=== PATIENT | female | born 1995 | race Caucasian/White ===

== ENCOUNTER 2016-10-13 19:26 | Emergency (ER) | payer OTHER ==
[2016-10-13] MEDS ORDERED: NS 1,000 ML IV ONE (21:14)
--- NOTE | 2016-10-13 21:17 | EDPHY ---
H & P Stated Complaint: abdominal pain x 2 hours Time Seen by Provider: 10/13/16 21:04 HPI/ROS: CHIEF COMPLAINT: Abdominal pain HISTORY OF PRESENT ILLNESS: The patient is a 21-year-old female who complains of sudden onset acute abdominal pain in her left lower abdomen that began about an hour ago. It is beginning to improve. She denies any trauma. She denies any nausea vomiting or diarrhea. She has not had a fever or recent illness. She is to weeks from her last menstrual period. She denies any risk of or STD. No vaginal bleeding or discharge. She has a Mirena IUD. No urinary symptoms. she has a family history of ovarian cysts. REVIEW OF SYSTEMS: Constitutional: denies: chills, fever, recent illness, recent injury EENTM: denies: blurred vision, double vision, nose congestion Respiratory: denies: cough, shortness of breath Cardiac: denies: chest pain, irregular heart rate, lightheadedness, palpitations Gastrointestinal/Abdominal: See HPI, denies: abdominal pain, diarrhea, nausea, vomiting, blood streaked stools Genitourinary: denies: dysuria, frequency, hematuria, pain Musculoskeletal: denies: joint pain, muscle pain Skin: denies: lesions, rash, jaundice, bruising Neurological: denies: headache, numbness, paresthesia, tingling, dizziness, weakness Hematologic/Lymphatic: denies: blood clots, easy bleeding, easy bruising Immunologic/allergic: denies: HIV/AIDS, transplant EXAM: GENERAL: Well-appearing, well-nourished and in no acute distress. HEAD: Atraumatic, normocephalic. EYES: Pupils equal round and reactive to light, extraocular movements intact, sclera anicteric, conjunctiva are normal. ENT: TMs normal, nares patent, oropharynx clear without exudates. Moist mucous membranes. NECK: Normal range of motion, supple without lymphadenopathy or JVD. LUNGS: Breath sounds clear to auscultation bilaterally and equal. No wheezes rales or rhonchi. HEART: Regular rate and rhythm without murmurs, rubs or gallops. ABDOMEN: Left lower quadrant tenderness, normoactive bowel sounds. No tenderness over McBurney's point , negative Doherty sign, BACK: No CVA tenderness, no spinal tenderness, step-offs or deformities EXTREMITIES: Normal range of motion, no pitting or edema. No clubbing or cyanosis. NEUROLOGICAL: Cranial nerves II through XII grossly intact. Normal speech, normal gait. 5/5 strength, normal movement in all extremities, normal sensation PSYCH: Normal mood, normal affect. SKIN: Warm, dry, normal turgor, no visible rashes or lesions. Source: Patient Exam Limitations: No limitations - Personal History LMP (Females 10-55): 8-14 Days Ago Current Tetanus/Diphtheria Vaccine: Unsure Current Tetanus Diphtheria and Acellular Pertussis (TDAP): Unsure - Medical/Surgical History Hx Asthma: No Hx Chronic Respiratory Disease: No Hx Diabetes: No Hx Cardiac Disease: No Hx Renal Disease: No Hx Cirrhosis: No Hx Alcoholism: No Hx HIV/AIDS: No Hx Splenectomy or Spleen Trauma: No Other PMH: Medical spontaneous Pneumothorax, MDD, current smoker (1-2 cigarettes per day), daily MJ use ~i ounce per week, PNA x4-5, surgery none - Family History Significant Family History: No pertinent family hx - Social History Smoking Status: Current every day smoker Alcohol Use: Sober Drug Use: None Constitutional: Initial Vital Signs Temperature (C) 36.4 C 10/13/16 20:38 Heart Rate 71 10/13/16 20:38 Respiratory Rate 16 10/13/16 20:38 Blood Pressure 109/74 10/13/16 20:38 O2 Delivery Mode Room Air Allergies/Adverse Reactions: diazepam Allergy (Severe, Verified 01/02/15 15:00) Other-Enter Comments Home Medications: Medication Instructions Recorded Adderall 10 MG (*) 10/13/16 Medical Decision Making ED Course/Re-evaluation: 11:00 p.m. we discussed the patient's ultrasound and lab results which are reassuring. She does not have any dysuria or urinary symptoms. She is free fluid in her left adnexa consistent with ovarian cyst rupture which is consistent with her history. I suspect that this is the case. She understands that I cannot rule out appendicitis or kidney stone's cetera. She is feeling much better and declines further workup treatment. She is eager to go home. We discussed indications for returning. Told her to return in 24 hours for reassessment of her pain does not resolve. She declines pelvic exam and is not concerned for pelvic infection. Differential Diagnosis: Partial list of the Differential diagnosis considered include but were not limited to; ovarian cyst, ovarian torsion, and although unlikely based on the history and physical exam, I also considered urinary tract infection, diverticulitis, appendicitis, , PID. I discussed these differential diagnoses and the plan with the patient as well as the usual and expected course. The patient understands that the diagnosis is provisional and that in medicine we are not always correct and that further workup is often warranted. Usual and customary warnings were given. All of the patient's questions were answered. The patient was instructed to return to the emergency department should the symptoms at all worsen or return, otherwise to followup with the physician as we discussed. - Data Points Laboratory Results: Laboratory Results 10/13/16 21:20 10/13/16 21:20 10/13/16 21:20 WBC 15.57 H D 10^3/uL (3.80-9.50) RBC 4.34 10^6/uL (4.18-5.33) Hgb 13.4 g/dL (12.6-16.3) Hct 39.6 % (38.0-47.0) MCV 91.2 fL (81.5-99.8) MCH 30.9 pg (27.9-34.1) MCHC 33.8 g/dL (32.4-36.7) RDW 12.6 % (11.5-15.2) Plt Count 350 10^3/uL (150-400) MPV 8.7 fL (8.7-11.7) Neut % (Auto) 83.6 H % (39.3-74.2) Lymph % (Auto) 11.1 L % (15.0-45.0) [place] % (Auto) 3.6 L % (4.5-13.0) Eos % (Auto) 0.8 % (0.6-7.6) Baso % (Auto) 0.4 % (0.3-1.7) Nucleat RBC Rel Count 0.0 % (0.0-0.2) Absolute Neuts (auto) 13.00 H 10^3/uL (1.70-6.50) Absolute Lymphs (auto) 1.73 10^3/uL (1.00-3.00) Absolute Monos (auto) 0.56 10^3/uL (0.30-0.80) Absolute Eos (auto) 0.13 10^3/uL (0.03-0.40) Absolute Basos (auto) 0.07 10^3/uL (0.02-0.10) Absolute Nucleated RBC 0.00 10^3/uL (0-0.01) Immature Gran % 0.5 % (0.0-1.1) Immature Gran # 0.08 10^3/uL (0.00-0.10) Sodium 138 mEq/L (134-144) Potassium 4.2 mEq/L (3.5-5.2) Chloride 101 mEq/L (97-110) Carbon Dioxide 23 mEq/l (22-31) Anion Gap 14 mEq/L (8-16) BUN 9 mg/dL (7-23) Creatinine 0.6 mg/dL (0.6-1.0) Estimated GFR > 60 Glucose 73 mg/dL (70-100) Calcium 9.5 mg/dL (8.5-10.4) Beta HCG, Qual NEGATIVE Urine Color YELLOW Urine Appearance HAZY Urine pH 5.0 (5.0-7.5) Ur Specific [place] 1.026 (1.002-1.030) Urine Protein 1+ H (NEGATIVE) Urine Ketones 2+ H (NEGATIVE) Urine Blood NEGATIVE (NEGATIVE) Urine Nitrate NEGATIVE (NEGATIVE) Urine Bilirubin NEGATIVE (NEGATIVE) Urine Urobilinogen NEGATIVE EU (0.2-1.0) Ur Leukocyte Esterase NEGATIVE (NEGATIVE) Urine RBC 1-3 /hpf (0-3) Urine WBC 3-5 H /hpf (0-3) Ur Epithelial Cells 1+ /lpf (NONE-1+) Urine Mucus 4+ H /lpf (NONE-1+) Urine Sperm PRESENT H /hpf (NONE SEEN) Ur Culture Indicated? NOT INDICATED (NI) Urine Glucose NEGATIVE (NEGATIVE) Medications Given: Discontinued Medications Sodium Chloride (Ns) 1,000 mls @ 0 mls/hr IV ONCE ONE PRN Reason: Wide Open Stop: 10/13/16 21:15 Last Admin: 10/13/16 21:25 Dose: 1,000 mls Departure - Departure Disposition: Home, Routine, Self-Care Clinical Impression: Ovarian cyst Qualifiers: Laterality: left Qualifier Code: (N83.202) Unspecified ovarian cyst, left side Condition: Fair Instructions: Ovarian Cyst (ED) Referrals: Vannessa Head FNP [Primary Care Provider] - As per Instructions
[2016-10-13 21:54] LABS: % IMMATURE GRANULYOCYTES 0.5 % (0.0-1.1); ABSOLUTE IMMATURE GRANULOCYTES 0.08 10^3/uL (0.00-0.10); ADD DIFF? NO; ADD MORPH? NO; ADD SCAN? NO; ATYPICAL LYMPHOCYTE FLAG 10 (0-99); FRAGMENT RBC FLAG 0 (0-99); HEMATOCRIT 39.6 % (38.0-47.0); HEMOGLOBIN 13.4 g/dL (12.6-16.3); LEFT SHIFT FLG 0 (0-99); LIPEMIA HEMOLYSIS FLAG 90 (0-99); MEAN CELL HEMOGLOBIN 30.9 pg (27.9-34.1); MEAN CELL HEMOGLOBIN CONCENTR. 33.8 g/dL (32.4-36.7); MEAN CELL VOLUME 91.2 fL (81.5-99.8); MEAN PLATELET VOLUME 8.7 fL (8.7-11.7); PLATELET CLUMPS FLAG 10 (0-99); PLATELET COUNT 350 10^3/uL (150-400); RED BLOOD CELL COUNT 4.34 10^6/uL (4.18-5.33); RED CELL DISTRIBUTION WIDTH 12.6 % (11.5-15.2)
[2016-10-13 21:55] LABS: COLOR YELLOW; LEUKOCYTE ESTERASE,URINE NEGATIVE (NEGATIVE); NITRITE,URINE NEGATIVE (NEGATIVE)
[2016-10-13 22:02] LABS: MUCUS 4+ /lpf (NONE-1+)
[2016-10-13 22:20] LABS: ANION GAP 14 mEq/L (8-16); CALCIUM 9.5 mg/dL (8.5-10.4); CARBON DIOXIDE 23 mEq/l (22-31); CHLORIDE 101 mEq/L (97-110); CREATININE 0.6 mg/dL (0.6-1.0); GLOMERULAR FILTRATION RATE > 60; GLUCOSE 73 mg/dL (70-100); POTASSIUM 4.2 mEq/L (3.5-5.2); SODIUM 138 mEq/L (134-144)
--- NOTE | 2016-10-13 22:59 | US ---
Ultrasound of the pelvis. HISTORY: Pelvic pain. TECHNIQUE: Endovaginal. Pulse and color flow Doppler of the ovaries. FINDINGS: Uterus is normal in appearance. There is an IUD within the endometrial canal in appropriate position. Mild cul-de-sac and left adnexal fluid. Ovaries are normal in size and shape with patent a rterial blood flow on Doppler evaluation. IMPRESSION: 1. IUD in appropriate position. 2. Mild cul-de-sac and left adnexal fluid. Results called to Dr. Andrei Clark at 10:55 PM
[2016-10-13 23:28] VITALS: BP 98/59; PULSE 76; RESP 20; TEMP 97.9; O2SAT 97
== END 2016-10-13 23:34 | disposition home or self-care (01) ==
DX: N83.202 Unspecified ovarian cyst, left side (principal); F17.210 Nicotine dependence, cigarettes, uncomplicated

== ENCOUNTER → 2018-08-29 | Outpatient (CLI) | payer OTHER | LOC: GIMAGING 14:42 → EDSTATUS 16:14 | PROVIDERS: ATTEND Family Medicine | DX: R05 Cough (principal); Z87.09 Personal history of other diseases of the respiratory system | CPT/HCPCS: 71046-PO ==

== ENCOUNTER 2018-09-18 20:18 | Inpatient (IN) | payer OTHER ==
--- NOTE | 2018-09-18 20:34 | EDPHY ---
H & P Smoking Status: Current every day smoker Time Seen by Provider: 09/18/18 20:21 HPI/ROS: CHIEF COMPLAINT: Depression, suicidal ideation, mental health hold HISTORY OF PRESENT ILLNESS: Patient arrives by police on a mental health hold. Patient tells me she was speaking to her mother about worsening depression and suicidal ideation, her mother told her to drive to the hospital. On the way to the hospital the patient stopped because she had had some alcohol and was eventually brought in by police. She says she is having worsening depression with suicidal ideation with the thought to take all of her pills. REVIEW OF SYSTEMS: Eye: no change in vision ENT: no sore throat Cardiac: no chest pain or syncope Pulmonary: Ongoing cough for about a month, she has been seen by her primary care physician in finished a course of antibiotics, negative chest x-ray. Abdomen: Some intermittent abdominal symptoms from her IBS which are stable Musculoskeletal: no back pain Skin: no rash Neuro: no headache Constitutional: no fever : no urinary symptoms A comprehensive 10 point review of systems is otherwise negative aside from elements mentioned in the history of present illness. PAST MEDICAL HISTORY: Pneumothorax with left-sided surgical procedure, IBS Social history: Alcohol and marijuana otherwise negative for drugs General Appearance: Alert and conversant, cooperative. Eyes: No scleral icterus. ENT, Mouth: Normal mucous membranes. Respiratory: Normal respiratory effort, breath sounds equal, lungs are clear to auscultation. Breath sounds equal. Cardiovascular: Regular rate and rhythm. Gastrointestinal: Abdomen is soft and non tender. Neurological: Alert, face symmetric, normal motor and sensory in extremities. Skin: No laceration or abrasion Musculoskeletal: No peripheral edema. Psychiatric: Depressed affect. Suicidal ideation. Not hallucinating. Emergency Department course/MDM: Present mental health hold. Plans to include CBC chemistry urine tox ethanol Tylenol and aspirin. Mental health evaluation. The patient had a medical screening evaluation performed. There does not appear to be an acute emergent medical or surgical condition which would preclude psychiatric evaluation at this time. Mental health evaluation is requested, signed out to Dr. Mckeon with evaluation pending. (Amauri More) Constitutional: Initial Vital Signs Temperature (C) 37.3 C 09/18/18 20:26 Heart Rate 106 H 09/18/18 20:26 Respiratory Rate 16 09/18/18 20:26 Blood Pressure 128/82 H 09/18/18 20:26 O2 Sat (%) 95 09/18/18 20:26 O2 Delivery Mode Room Air Allergies/Adverse Reactions: diazepam Allergy (Severe, Verified 09/18/18 20:28) Other-Enter Comments Home Medications: Medication Instructions Recorded Adderall 10 MG (*) 10/13/16 Augmentin 875 MG TAB (*) 09/18/18 Benzonatate 09/18/18 Eye Lubricant Combination No.1 09/18/18 Fluticasone Propionate 09/18/18 Hyoscyamine Sulfate 09/18/18 [place] 5-325 Tablet 09/18/18 Medical Decision Making Differential Diagnosis: Differential diagnosis considered for depression including functional and major depression, situational depression, medication side effect, drugs and alcohol abuse. (Amauri More) Other Provider: [address] More pending mental health evaluation. [id number] patient accepted to [address] [place] [address] Fountain. I have completed the EMT A LA (Marcellus Mckeon) - Data Points Laboratory Results: Laboratory Results 09/18/18 20:30 09/18/18 20:30 09/18/18 09/18/18 09/18/18 20:42 20:30 20:30 WBC 9.34 10^3/uL 10^3/uL (3.80-9.50) RBC 4.79 10^6/uL 10^6/uL (4.18-5.33) Hgb 14.7 g/dL g/dL (12.6-16.3) Hct 42.9 % % (38.0-47.0) MCV 89.6 fL fL (81.5-99.8) MCH 30.7 pg pg (27.9-34.1) MCHC 34.3 g/dL g/dL (32.4-36.7) RDW 12.2 % % (11.5-15.2) Plt Count 353 10^3/uL 10^3/uL (150-400) MPV 8.9 fL fL (8.7-11.7) Neut % (Auto) 59.4 % % (39.3-74.2) Lymph % (Auto) 29.8 % % (15.0-45.0) [place] % (Auto) 7.0 % % (4.5-13.0) Eos % (Auto) 2.7 % % (0.6-7.6) Baso % (Auto) 0.9 % % (0.3-1.7) Nucleat RBC Rel Count 0.0 % % (0.0-0.2) Absolute Neuts (auto) 5.56 10^3/uL 10^3/uL (1.70-6.50) Absolute Lymphs (auto) 2.78 10^3/uL 10^3/uL (1.00-3.00) Absolute Monos (auto) 0.65 10^3/uL 10^3/uL (0.30-0.80) Absolute Eos (auto) 0.25 10^3/uL 10^3/uL (0.03-0.40) Absolute Basos (auto) 0.08 10^3/uL 10^3/uL (0.02-0.10) Absolute Nucleated RBC 0.00 10^3/uL 10^3/uL (0-0.01) Immature Gran % 0.2 % % (0.0-1.1) Immature Gran # 0.02 10^3/uL 10^3/uL (0.00-0.10) Sodium 139 mEq/L mEq/L (135-145) Potassium 4.0 mEq/L mEq/L (3.5-5.2) Chloride 109 mEq/L mEq/L (97-110) Carbon Dioxide 19 mEq/l L mEq/l (22-31) Anion Gap 11 mEq/L mEq/L (6-14) BUN 13 mg/dL mg/dL (7-23) Creatinine 0.6 mg/dL mg/dL (0.6-1.0) Estimated GFR > 60 Glucose 103 mg/dL H mg/dL (70-100) Calcium 9.8 mg/dL mg/dL (8.5-10.4) Salicylates < 1.0 mg/dL L mg/dL (2.0-20.0) Urine Opiates Screen NEGATIVE (NEGATIVE) Acetaminophen < 10 mcg/mL L mcg/mL (10-30) Urine Barbiturates NEGATIVE (NEGATIVE) Ur Phencyclidine Scrn NEGATIVE (NEGATIVE) Ur Amphetamine Screen NON-NEGATIVE H (NEGATIVE) U Benzodiazepines Scrn NEGATIVE (NEGATIVE) Urine Cocaine Screen NEGATIVE (NEGATIVE) U Marijuana (THC) Screen NON-NEGATIVE H (NEGATIVE) Ethyl Alcohol 30 mg/dL H mg/dL (0-10) Departure - Departure Disposition: [facility] IP Clinical Impression: Severe major depression, Suicidal ideation Condition: Good Referrals: Vannessa Head FNP [Primary Care Provider] - As per Instructions
[2018-09-18 20:42] LABS: PLATELET COUNT 353 10^3/uL (150-400)
--- NOTE | 2018-09-19 00:27 | ASMTTCLDSP ---
TLC Discharge Disposition Disposition: Answers: Admit Discharge Concerns/Recommendations: Notes: In consultation with [facility] ED physician, Marcellus Mckeon MD and on-call psychiatrist, Vonda Fountain MD, both concurred that pt appears to meet 27-65 criteria requiring psychiatric hospitalization as pt appears to be at risk of harm to self due to a mental illness condition. Pt was given the 3N prohibited belongings list while in the ED. For inpatient Vonda Fountain MD admission, the following psychiatrist agreed to accept patient for admission to Behavioral Health ([facility]): Date Signed: 09/19/2018 12:27 AM Electronically Signed By:Nanci Amador
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
[2018-09-19] MEDS ORDERED: MAGNESIUM HYDROXIDE 30 ML UDCUP PO PRN (01:21)
[2018-09-19] MEDS ORDERED: MAG HYDROX/AL HYDROX/SIMETH 30 ML UDCUP PO PRN (01:21)
[2018-09-19] MEDS ORDERED: ACETAMINOPHEN 325 MG TAB PO PRN (01:21)
[2018-09-19] MEDS ORDERED: OLANZapine 5 MG TAB PO PRN (01:22)
[2018-09-19] MEDS ORDERED: hydrOXYzine HCL 25 MG TAB PO PRN (01:22)
[2018-09-19] MEDS ORDERED: MELATONIN 3 MG TAB PO PRN (01:23)
[2018-09-19] MEDS: NICOTINE POLACRILEX 2 MG GUM B PRN ×4 (01:32→10:59)
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
--- NOTE | 2018-09-19 11:10 | PDMN ---
Medical Necessity Medical necessity: Pt meets inpt criteria per MD order and [facility] [id number], Major Depressive Disorder, Adult: Inpatient Care, 3 days. 23 y/o admitted on M1 Hold due to risk of harm to self w/major depressive disorder w/suicidal ideation requiring psychiatric hospitalization.
--- NOTE | 2018-09-19 13:22 | BCON ---
INTERNAL MEDICINE CONSULTATION DATE OF CONSULTATION: 09/19/2018 REFERRING PHYSICIAN: Vonda Fountain MD REASON FOR REFERRAL: Medical clearance for inpatient behavioral health stay. HISTORY OF PRESENT ILLNESS: This patient came to the emergency department yesterday, brought in by police on an M1 hold with suicidal ideation. She was driving herself to the hospital but had alcohol intake that day and was concerned about desire to hurt herself and did not feel safe, so she called the police, who then brought her to the emergency department. She reports that she has a "yeast infection." She is otherwise without acute complaints. PAST MEDICAL HISTORY: 1. Mental health issues with diagnoses of major depression and cluster B traits. 2. History of spontaneous recurrent pneumothorax. 3. Irritable bowel syndrome. PAST SURGICAL HISTORY: She has had chest tube placement and a VATS procedure with blebectomy and pleurodesis in 2014. MEDICATIONS: 1. Adderall 20 mg p.o. q.a.m. and 20 mg p.o. at noon. 2. Fluticasone nasal spray. 3. Hyoscyamine 0.125 mg q.4-6 hours p.r.n. PSYCHOSOCIAL HISTORY: She is not working. Per record review, she has recently broken up with a boyfriend, and it is unclear where she might be living. She is a smoker, and she is not interested in smoking cessation. Her toxicology screens were positive for alcohol, as well as marijuana. FAMILY HISTORY: Noncontributory. REVIEW OF SYSTEMS: Very limited as she is not willing to participate. PHYSICAL EXAM: VITAL SIGNS: Blood pressure is 108/74. Heart rate is 83. Respiratory rate is 16. Oxygen saturation is 97% on room air. Temperature is 36.8 degrees centigrade. Her weight is 52.2 kg, for a body mass index of 17. GENERAL: This is a thin woman, appears her chronologic age, sitting on the floor in her room with a male visitor present. Initially cooperative but then is unwilling to continue with the history taking and refuses any physical exam. HEENT: Extraocular movements are intact. Mucous membranes appear moist. Dentition appears to be in good condition. NECK: Supple. CARDIOVASCULAR AND PULMONARY: Examinations could not be done. ABDOMEN: Abdominal examination could not be done. NEUROLOGIC: She is alert and oriented x3. Cranial nerves 2 -12 are grossly intact by visual examination. She is able to arise independently from the floor and ambulates with a normal gait. LABORATORY STUDIES: From the emergency department, CBC was entirely normal. Basic metabolic profile showed a slightly low carbon dioxide at 19, of no clinical significance. Serum glucose was elevated at 103, but was likely not fasting. Hemoglobin A1c was normal at 5.1. Liver function tests were normal, and lipid panel was normal. TSH was normal at 0.716. Serum toxicology screen was positive for 30 mg/dL of ethyl alcohol. Urine toxicology screen was non- negative for amphetamines and marijuana, but was otherwise negative for substances of abuse. ASSESSMENT/RECOMMENDATIONS: 1. Mental health issues pending further evaluation and management per Psychiatry and the mental health team. 2. Tobacco dependence syndrome. She is not interested in smoking cessation at present. 3. Alcohol use disorder. 4. Possible yeast vaginitis. She declined any further evaluation or any treatment. She was assured that should she desire treatment, it would be available. I see no medical contraindications to this patient's continued stay on the inpatient behavioral health unit or to any psychiatric medications or procedures. Thank you very much for including me in the care of this patient, and please do not hesitate to contact me or the hospitalist service should there be need for further medical evaluation. /[id number]/MODL MTDD
[2018-09-20] MEDS: NICOTINE POLACRILEX 2 MG GUM B PRN ×6 (08:52→21:03)
[2018-09-20] MEDS ORDERED: FLUTICASONE NASAL 120 SPRAYS/16 GM MDI EACHNARE PRN (15:11)
[2018-09-20] MEDS ORDERED: FLUCONAZOLE 150 MG TAB PO ONE (15:12)
--- NOTE | 2018-09-20 15:25 | SOAPPROG ---
SOAP Progress Note Assessment/Plan: Assessment: 23 yo woman with h/o MDD, substance use disorder was BIB police after patient attempted to drive to ED while intoxicated. She told her MOC she was having thoughts of killing herself by OD. Per ED note: Patient arrives by police on a mental health hold. Patient tells me she was speaking to her mother about worsening depression and suicidal ideation, her mother told her to drive to the hospital. On the way to the hospital the patient stopped because she had had some alcohol and was eventually brought in by police. She says she is having worsening depression with suicidal ideation with the thought to take all of her pills. Plan: 09/20/18 15:18 1. Patient says she is no longer upset over break up with BF. In fact, she reports she is currently interested in another person. 2. Patient told Ney Alfaro OPERATIONS TEAM LEADER, that she does not want to take psychotropic meds and doesn't believe she needs to be on antidepressants. 3. MOC told CC that patient has h/o "acting out" including screaming, shouting, punching tsang, pulling hair and arguing/fighting with family. MOC told CC that she doesn't know if patient's sxs are "real" b/c she has "lied about her symptoms" in past. MOC says patient is "manipulative" and has "pretended" to have psych sxs in past. 4. Patient willing to f/u with OP therapist, Nimo Meraz, after d/c. 5. Patient does not think she has a problem with alcohol and does not want any treatment for substance use disorder. 6. Patient agrees to stay through w/e for further monitoring and will likely d/ c on Saturday. Subjective: Patient has been attending groups and participating in milieu activities. She presents as pleasant and cooperative, no signs of distress or depressed mood. Patient denies feeling sad, depressed or anxious. She does not want to take any psych meds. She says she will f/u with her therapist, Nimo Meraz after d/c. Patient minimizes the role alcohol plays in her mood lability, anger issues ( MOC reports she has h/o kicking/punching tsang, screaming, fighting) and depression. She does not want any treatment for her alcohol use. Patient denies any SI/HI. Objective: Vital Signs Temp Pulse Resp BP Pulse Ox 36.6 C 69 14 104/65 96 09/20/18 06:00 09/20/18 06:00 09/20/18 06:00 09/20/18 06:00 09/20/18 06:00 MSE: Affect: Euthymic Mood: "OK" TP: Linear TC: Denies any SI/HI Insight/ Judgment: Poor - Time Spent With Patient Time Spent With Patient: 15" - Pending Discharge Pending Discharge Within 24 Hours: No Pending Discharge Within 48 Hours: Yes Pending Discharge Date: 09/22/18 (Likely to d/c on Saturday) Pending Discharge Time: 11:00 ICD10 Worksheet Patient Problems: Problems Problem Status Onset Cannabis use disorder, mild, abuse Acute Nicotine dependence Acute Severe major depression Chronic Recurrent spontaneous pneumothorax Acute
--- NOTE | 2018-09-20 15:26 | ASMTCMCOM ---
CM Note CM Note Notes: Pt. stated she now plans to stay in [place] for at least month to pack up her items. Pt. stated she will stay with a friend, who has been visiting her while in the hospital. RN stated MOC called and RN listened. RN reported to CC what MOC stated. MOC stated pt. and her boyfriend just broke up. MOC reports pt having "paranoia or is lying". MOC stated pt stated "regrets not killing herself" and "won't seek help next time". MOC stated pt's therapist is Sharon Meraz ([phone]) adding she knows the patient well. MOC stated pt. has a history of ripping out her hair, punching tsang, screaming, highly emotional liability, "suffering for 10 years", increased self hatred and "very good manipulator". MOC stated pt. may also have a new boyfriend as well. Date Signed: 09/20/2018 03:26 PM Electronically Signed By:Isabella Carr
[2018-09-20] MEDS: FLUTICASONE/SALMETER 250/50MCG DISKUS IH SCH (22:17)
[2018-09-21] MEDS: FLUTICASONE/SALMETER 250/50MCG DISKUS IH SCH ×2 (08:44→21:09)
[2018-09-21] MEDS: NICOTINE 14 MG/24 HR PATCH TD SCH (08:44)
--- NOTE | 2018-09-21 14:36 | ASMTBHDC ---
Notes Note: Notes: Pt. reports "doing alright". Pt. stated she plans to discharge on Saturday, adding that her hold is up this evening. Pt. stated she had "bunch of weird stress dreams" last night. Pt. reports eating enough, adding "it's a lot of food". Pt. reports she is not taking any medications currently. Pt. reports attending groups, adding she has "gone to most of them". Pt. stated she can get herself to her follow up appointment. Pt. denied SI, HI, AVH and paranoia. Pt. presents as alert, calm, guarded, good eye contact, and cooperative. Staff report pt. sleeping 8 hours and attending groups. Date Signed: 09/21/2018 02:35 PM Electronically Signed By:Isabella Carr
--- NOTE | 2018-09-21 16:52 | SOAPPROG ---
SOAP Progress Note Assessment/Plan: Assessment: 23 yo woman with h/o MDD, substance use disorder was BIB police after patient attempted to drive to ED while intoxicated. She told her MOC she was having thoughts of killing herself by OD. Per ED note: Patient arrives by police on a mental health hold. Patient tells me she was speaking to her mother about worsening depression and suicidal ideation, her mother told her to drive to the hospital. On the way to the hospital the patient stopped because she had had some alcohol and was eventually brought in by police. She says she is having worsening depression with suicidal ideation with the thought to take all of her pills. Plan: 09/20/18 15:18 1. Patient says she is no longer upset over break up with BF. In fact, she reports she is currently interested in another person. 2. Patient told Ney Alfaro NP, that she does not want to take psychotropic meds and doesn't believe she needs to be on antidepressants. 3. MOC told CC that patient has h/o "acting out" including screaming, shouting, punching tsang, pulling hair and arguing/fighting with family. MOC told CC that she doesn't know if patient's sxs are "real" b/c she has "lied about her symptoms" in past. MOC says patient is "manipulative" and has "pretended" to have psych sxs in past. 4. Patient willing to f/u with OP therapist, Nimo Meraz, after d/c. 5. Patient does not think she has a problem with alcohol and does not want any treatment for substance use disorder. 6. Patient agrees to stay through w/e for further monitoring and will likely d/ c on Saturday. 09/21/18 16:49 1. Patient has new friend that has visited her several times on unit. She says he is not her "boyfriend," but "just a friend." 2. Patient's MOC called CC twice to report that patient is "feeling bad" d/t "not having a bowel movement" and "unable to shower." 3. Patient denies sadness, depression. No SI, no AH/VH, no paranoia. 4. Patient continues to decline psych meds. 5. Patient is willing to f/u with Nimo Meraz for 1:1 therapy after d/c. 6. Patient wants to d/c on Saturday. Agrees to voluntary status. Subjective: Patient states she wants to "leave tomorrow." She denies feeling depressed, also denies any SI/HI. She denies any psychotic sxs. She reports "weird dreams" but denies AH/VH, paranoia, delusions. Objective: Vital Signs Temp Pulse Resp BP Pulse Ox 36.7 C 64 15 111/53 L 95 09/21/18 06:00 09/21/18 06:00 09/21/18 06:00 09/21/18 06:00 09/21/18 06:00 MSE: Affect: Euthymic Mood: "OK" TP: Linear TC: Denies SI/HI Insight/ Judgment: Poor - Time Spent With Patient Time Spent With Patient: 15" - Pending Discharge Pending Discharge Within 24 Hours: Yes Pending Discharge Date: 09/22/18 (Possible d/c on Saturday) Pending Discharge Time: 11:00 ICD10 Worksheet Patient Problems: Problems Problem Status Onset Cannabis use disorder, mild, abuse Acute Nicotine dependence Acute Severe major depression Chronic Recurrent spontaneous pneumothorax Acute
[2018-09-22 06:42] VITALS: BP 124/69
[2018-09-22] MEDS: FLUTICASONE/SALMETER 250/50MCG DISKUS IH SCH (08:17)
[2018-09-22] MEDS: NICOTINE 14 MG/24 HR PATCH TD SCH ×3 (08:18→08:26)
[2018-09-22] MEDS: NICOTINE POLACRILEX 2 MG GUM B PRN (08:42)
--- NOTE | 2018-09-22 09:15 | BDS ---
REASON FOR ADMISSION: From the ED note, dated 09/18/2018, patient arrived by police to the ER on a mental health hold. The patient reported speaking to her mother about worsening depression and suicidal ideation. Her mother told her to drive to the hospital. On the way to the hospital, patient stopped because she had had some alcohol and was eventually brought in by police. Patient reported having worsening depression with suicidal ideation with the thought of taking all of her pills. Patient was admitted involuntarily on an M1 hold due to being a danger to herself. The patient was admitted for safety, crisis stabilization, and medication evaluation. ADMITTING DIAGNOSES: 1. Severe major depression. 2. Nicotine dependence. 3. Cannabis use disorder, mild. ADMISSION PHYSICAL EXAM: The patient was seen for an Internal Medicine consultation on 09/19/2018, for medical clearance for inpatient psychiatric hospitalization and treatment. Patient was medically cleared for inpatient psychiatric hospitalization and treatment. For further details, please refer to consultation note dated 09/19/2018. ADMISSION LABS: 1. CBC from 09/18/2018, within normal limits. 2. BMP within normal limits except carbon dioxide was low at 19. Glucose was elevated at 103. 3. Hemoglobin A1c within normal limits at 5.14. 4. Liver function within normal limits. 5. Lipid panel within normal limits. 6. TSH within normal limits at 0.716. 7. Toxicology non-negative for amphetamine, non-negative for THC, negative for all other substances screened. Ethyl alcohol level 30. MAJOR PROCEDURES OR TESTS: None. HOSPITAL COURSE: The most prominent symptoms and behaviors while the patient was here were reports of severe depression. The patient also presented with flat affect and was withdrawn at time of admission. Treatment modalities utilized were milieu and group therapy. Psychotropic medication options, risks , and benefits were discussed with the patient. The patient reported that she plans on following up on an outpatient basis for ongoing medication evaluation. Patient was not interested in starting a trial of an antidepressant during her hospitalization. Patient has improved considerably with no signs of psychiatric symptoms and no psychiatric symptoms expressed at time of discharge. Patient reports she has improved since admission. States to be in stable condition, feels safe to discharge, and she contracts for safety. Patient's response to treatment was good. There were no adverse or unexpected results of treatment. The patient was safe throughout her stay, active in treatment, engaged in groups, and was appropriate with staff and other patients. Patient met with the treatment team prior to discharge to assess readiness to discharge and review discharge plan. The treatment team consensus is the patient is in stable condition, has a safe discharge plan, and is ready to discharge today. CONDITION AT DISCHARGE: Patient is in stable condition and is no longer a danger to self or others, and is not gravely disabled due to mental illness. Patient is no longer in need of inpatient level of care, and can be safely and effectively treated within the community. The patients level of risk at time of discharge is low. MSE: The patient is casually dressed and with good hygiene , and looks stated age. Patient is sitting, posture is upright, and position is relaxed. Patient appears awake, alert, and responds appropriately and reasonably during interview. Patient is engaged, relates well to interviewer, and emotional facial expression is appropriate to situation and changes appropriately with topic. Patient is cooperative, makes comfortable eye contact , and movements are voluntary, deliberate, coordinated, and smooth and even with no inappropriate movements. Patient makes laryngeal sounds effortlessly and shares conversation appropriately; pace of conversation is appropriate, and stream of talking is fluent; articulation is clear and understandable; word choice is effortless and appropriate for education level; completes sentences, occasionally pausing to think; rate and volume are appropriate for interview and setting. Patient reports mood as euthymic. Patients affect is stable with full variable range, congruent with mood, and appropriate to speech and circumstances. Patient has linear and logical thinking, with no loose associations, tangential thought, thought blocking, concrete thinking, or any other signs of formal thought disorder. Patient denies suicidal and homicidal ideation, and denies hallucinations and delusions. Patient appears to be a reliable historian with sound judgement and good insight into current condition. Patient has no apparent dysfunction in recent or remote memory noted , and no evidence of gross cognitive dysfunction noted at any point during the interview. DISCHARGE DIAGNOSES: 1. Severe major depression. 2. Nicotine dependence. 3. Cannabis use disorder, mild. CURRENT MEDICATIONS: After reviewing options, risks, and benefits with the patient, patient agrees to continue: 1. Nicoderm CQ 14 mg TD daily patch. 2. Melatonin 3-6 mg p.o. q.h.s. p.r.n. 3. Advair 250/50 one puff IH b.i.d. 4. Levsin, HyoMax-SI 0.125 mg p.o. q.4 hours, 2 p.o. q.6 hours p.r.n. 5. Flonase nasal spray 2 sprays nasal daily p.r.n. DISPOSITION: Patient left hospital independently and voluntarily with her friend and plans to stay with her friend in [place], [place] after discharge. FOLLOWUP: neonatal icu coordinator reports the appropriate outpatient follow-up services have been established and outpatient appointments have been scheduled. The patient received written instructions with times and dates of outpatient follow-up appointments. The following follow-up recommendations were provided to the patient at discharge: Continue psychotropic medications as prescribed and attend appointments as scheduled. Report any side effects to a psychiatric outpatient provider, a primary care provider, or other health emergency care attendant. Address any questions or problems concerning the psychotropic medications with a psychiatric outpatient provider, a primary care provider, or other health emergency care attendant. Contact [facility] or [facility], or go to the nearest emergency room, if you are ever a danger to yourself/others, or unable to care for yourself. As soon as possible, establish a routine medication management treatment with a psychiatric provider, establish routine therapy appointments, and follow-up with a primary care provider. SUBSTANCE ABUSE BRIEF INTERVENTION: Brief intervention regarding the risks of nicotine and cannabis abuse is provided to patient with goal to reduce the risk of harm that could result from the continued use of nicotine and cannabis, with the general aim to investigate the problem, raise awareness of problem, develop a solution with the patient, recommend a specific change or activity, and motivate the patient toward change. Assess substance abuse behavior and give supportive advice about harm reduction, recommend a reduction in hazardous/at- risk consumption patterns, and facilitate referrals for additional specialized treatment with animal daycare provider. Intermediate goal is for the patient to quit and attend outpatient substance abuse treatment. Intervention focus on intermediate goals to allow for more immediate success in the treatment process to keep the patient motivated. Review following with patient: Cannabis use risks: Short-term use: impaired short-term memory, impaired motor coordination, altered judgement, in high doses paranoia and psychosis. Long-term use addiction, diminished life satisfaction and achievement, symptoms of chronic bronchitis, and increased risk of chronic psychosis disorders if predisposition to such disorders. In withdrawal anger, aggression irritability, anxiety and nervousness, decreased appetite or weight loss, restlessness, and sleep difficulties with strange dreams. Nicotine dependence: lung cancer, other cancers, heart and circulatory system problems, diabetes, eye problems, infertility and impotence, more prone to respiratory infections, weakened senses , teeth and gum disease, premature aging, second hand smoke. Withdrawal symptoms include strong cravings, anxiety, irritability, restlessness, difficulty concentrating, depressed mood, frustration, anger, increased hunger, insomnia, and constipation or diarrhea. OUTPATIENT SUBSTANCE ABUSE TREATMENT: Patient referred to outpatient provider and treatment for continued treatment related to substance abuse. LEGAL COURSE: Patient was admitted on an M1 hold for involuntary psychiatric hospitalization. The patient became voluntary during her stay, and patient discharged today independently and voluntarily. ATTITUDE AT TIME OF DISCHARGE: The patients attitude was positive at time of discharge, and patient reports looking forward to discharging today. The patient reports she feels safe to discharge, is no longer a danger to herself or others, is in stable condition, and contracts for safety. Patient states she will continue medications as prescribed, and establish medication management treatment with an outpatient provider after discharge. Patient reports she understands the information that has been provided to her, and she understands, accepts, and agrees to psychotropic medications. Patient describes internal protective factors as the coping skills she has learned while hospitalized here, and she plans to continue to practice these coping skills after discharge. Patient reports having a supportive friend that has visited her several times throughout her hospitalization, and she plans to stay with her friend after discharging today. LABS AND RADIOLOGY STUDIES: There were no pending labs or studies at time. ADVANCE DIRECTIVES: There were no advance directives on file, and patient was full code during this hospitalization. The following psychotropic medication treatment informed consent and recommendations were provided to the patient at time of discharge. Patient reports she understands, accepts, and agrees to the information that has been provided. PSYCHOTROPIC MEDICATION TREATMENT INFORMED CONSENT and RECOMMENDATIONS: Review nature of condition, diagnosis, and prognosis. Review nature and purpose of psychotropic medication treatment. Review type of psychotropic medications being prescribed. Review risk and benefits of psychotropic medication treatment. Review probable length of time will need to take medications. Review risk and benefits of not undergoing psychotropic medication treatment. Review alternative treatments to psychotropic medications. Review psychotropic medications contraindications, side effects, and importance of reporting any side effects to a psychiatric provider, primary care provider, or other health emergency care attendant. Review importance of her asking a psychiatric provider or primary care provider any questions or problems concerning the psychotropic medications. Review importance of reporting to a psychiatric provider, primary care provider, or other health emergency care attendant if she plans to or becomes . Review safety plan and the importance to contact [facility] or [facility] , or go to the nearest emergency room, if ever a danger to yourself/others, or unable to care for yourself. Recommend upon discharge to establish routine medication management treatment with a psychiatric provider, establish routine therapy appointments, and follow-up with a primary care provider. Verify patient understands, accepts, and agrees to the information that has been provided. SUICIDE ASSESSMENT FIVE-STEP EVALUATION AND TRIAGE (1) RISK FACTORS: (a) Suicidal behavior: age 13 OD aspirin (b) Current/past psychiatric disorders: Major Depressive Disorder (c) Rivas symptoms: none expressed or exhibited at time of discharge (d) Family history: none (e) Precipitants/Stressors/Interpersonal: none (f) Change in treatment: discharge from psychiatric hospital (g) Access to firearms: none (2) PROTECTIVE FACTORS: (a) Internal: coping skills learned while hospitalized (b) External: family, friends, and future (3) SUICIDAL INQUIRY: (a) Ideation: none (b) Plan: none (c) Behaviors: none; patient was safe throughout stay with no suicidal or parasuicidal behaviors (d) Intent: none (4) RISK LEVEL: Low: modifiable risk factors, strong protective factors; no suicidal or self-injurious ideation. Intervention: treatment plan to reduce symptoms including medications and therapy, provided emergency/crisis numbers, and established follow-up plan. /[id number]/MODL MTDD
--- NOTE | 2018-09-22 11:22 | ASMTBHDC ---
Notes Note: Notes: Pt. reports feeling "good". Pt. stated she slept "well" adding she did have some "weird dreams" due to forgetting to take off her nicotine patch before bed. Pt. stated her friend will be able to pick her up at discharge. Pt. stated she is able to text her therapist, Nimo, adding she saw Nimo three times in August. Pt. stated she would like to learn where she can get a MMPI testing done. Pt. denied SI, HI, AVH and paranoia. Pt. presents as alert, calm, friendly, a bit guarded, good eye contact, and cooperative. Staff report pt. sleeping 7 hours and attending groups. Date Signed: 09/22/2018 11:21 AM Electronically Signed By:Isabella Carr
== END 2018-09-22 11:12 | disposition home or self-care (01) | DRG 881 ==
LOC: BBEH 09-19 01:00
PROVIDERS: ADMIT Psychiatry & Neurology Behavioral Neurology & Neuropsychiatry; ATTEND Psychiatry & Neurology Behavioral Neurology & Neuropsychiatry
DX: F32.9 Major depressive disorder, single episode, unspecified (principal); R45.851 Suicidal ideations; F17.210 Nicotine dependence, cigarettes, uncomplicated; F10.99 Alcohol use, unspecified with unspecified alcohol-induced disorder
CPT/HCPCS: 80305; G0480